=== PATIENT | male | born 1955 | race Caucasian/White ===

== ENCOUNTER 2022-05-01 06:24 | Inpatient (IN) | payer OTHER ==
[2022-04-25 12:03] LABS: BASOPHILS # (AUTO) 0.1 X10'3 (0-0.2); EOSINOPHILS # (AUTO) 0.2 X10'3 (0-0.9); LYMPHOCYTES % (AUTO) 30.7 % (21-51); MEAN CORPUSCULAR HGB CONC 32.8 g/dL (33.0-36.5); MEAN CORPUSCULAR VOLUME 91.4 FL (78-98); MEAN PLATELET VOLUME 9.5 FL (7.4-10.4); MONOCYTES # (AUTO) 0.4 X10'3 (0-0.9); MONOCYTES % (AUTO) 6.8 % (2-12); NEUTROPHILS # (AUTO) 3.8 X10'3 (1.8-7.7); NEUTROPHILS % (AUTO) 58.5 % (42-75); PRE OP HEMATOCRIT 44.9 % (42.0-52.0); PRE OP HEMOGLOBIN 14.7 g/dL (14.0-17.9); PRE OP PLATELET COUNT 291 X10'3 (140-440); RED BLOOD COUNT 4.92 X10'6 (4.70-6.10); RED CELL DISTRIBUTION WIDTH 13.9 % (11.5-14.5)
[2022-04-25 12:27] LABS: ALBUMIN 3.8 G/DL (3.4-5.0); ALBUMIN/GLOBULIN RATIO 0.9 (1.1-1.5); ALKALINE PHOSPHATASE 86 IU/L (46-116); BLOOD UREA NITROGEN 15 MG/DL (7-18); BUN/CREATININE RATIO 15.5 (5.4-32.0); CALCIUM 10.2 MG/DL (8.5-10.1); CHLORIDE 101 MMOL/L (99-107); CREATININE 0.97 MG/DL (0.60-1.10); PRE OP ALT 40 U/L (30-65); PRE OP ANION GAP 6 (8-16); PRE OP AST 22 U/L (10-37); PRE OP BILIRUB, TOTAL 0.4 MG/DL (0.0-1.0); PRE OP GLUCOSE 163 MG/DL (70-104); PRE OP POTASSIUM 3.8 MMOL/L (3.4-5.1); PRE OP SODIUM 138 MMOL/L (135-145); TOTAL CARBON DIOXIDE 31.3 MMOL/L (24-32); TOTAL PROTEIN 7.9 G/DL (6.4-8.2); eGFR 78 ML/MIN
[2022-04-25 13:01] LABS: HEMOGLOBIN A1C 7.8 % (4.5-6.2)
[~2022-05-01] VITALS: Ht 182.9 cm; Wt 127.0 kg
[2022-05-01] VITALS (23 sets, daily range): BP systolic 104–197; BP diastolic 64–118
[~2022-05-01 06:24] MED LIST: ALBU8HFA PO; AMLO5TAB PO; ASPI81TA52 PO; BUDE10.22 INH; EXEN2AUT SQ; GUAI600T45 PO; HYDR12.55 PO; INSU100V12 SQ; LOSA100T57 PO; METF-438 PO; MONT10TA21 PO; PIOG45TA5 PO; ROSU10TA2 PO; ceFAZolin inj. 3,000 MG in normal saline 100ml IV soln 100 ML IV ONE; famotidine 20mg tablet PO ONE; ringers solution, lacted 1,000 ML IV SCH; tranexamic acid inj. 1,000 MG in normal saline IV soln 100ML IV ONE; vancomycin 1,500 MG in NS 300ml IV soln IV ONE
--- NOTE | 2022-05-01 07:58 | NUR ---
VIDEO WATCHED [facility] INTACT, NO OINTMENT USED
[2022-05-01] MEDS ORDERED: epiNEPHrine 1 mg/ml inj ONE (08:10)
[2022-05-01] MEDS ORDERED: ketorolac trometh. 30mg/ml inj. ONE (08:10)
[2022-05-01] MEDS ORDERED: ROPIVAcaine 0.5% (5mg/ml) 30ml vial ONE ×3 (08:10→11:24)
[2022-05-01] MEDS ORDERED: tetracaine 1% (10mg/ml) pres. free inj. ONE (08:15)
[2022-05-01] MEDS ORDERED: MIDAZolam 1mg/ml 10ml vial ONE ×2 (08:16→09:34)
[2022-05-01] MEDS ORDERED: FENTANYL CITRATE/PF 50 MCG/1 ML VIAL ONE ×2 (08:17→11:06)
[2022-05-01] MEDS ORDERED: morphine 10mg/ml inj. ONE (08:19)
[2022-05-01] MEDS ORDERED: vancomycin 1,000mg inj ONE (08:19)
[2022-05-01] MEDS ORDERED: ondansetron/PF 4mg/2ml inj IV PRN ×2 (08:25→12:20)
[2022-05-01] MEDS ORDERED: fentaNYL/PF 50MCG/1 ML 2ML syringe IV PRN ×2 (08:25)
[2022-05-01] MEDS ORDERED: ringers solution, lacted 1,000 ML IV SCH (08:25)
[2022-05-01] MEDS ORDERED: hydrALAZINE 20mg/ml inj. IV PRN (08:25)
[2022-05-01] MEDS ORDERED: morphine 2 MG/ML inj. syringe IV PRN (08:25)
[2022-05-01] MEDS ORDERED: morphine 4 MG/ML inj SYRINge IV PRN (08:25)
[2022-05-01] MEDS ORDERED: labetalol 20mg/4ml (5mg/ml) syringe IV PRN (08:25)
[2022-05-01] MEDS ORDERED: naloxone 0.4 mg/ml inj IV PRN (12:20)
[2022-05-01] MEDS ORDERED: HYDROmorphone 1 mg/ml syringe IV PRN (12:20)
[2022-05-01] MEDS ORDERED: magnesium hydroxide 30ml (MOM) UD suspension PO PRN (12:20)
[2022-05-01] MEDS ORDERED: acetaminophen 325mg tablet PO PRN (12:20)
[2022-05-01] MEDS ORDERED: diphenhydrAMINE 25mg capsule PO PRN ×2 (12:20)
[2022-05-01] MEDS ORDERED: bisacodyl 10mg suppository rectal RC PRN (12:20)
[2022-05-01] MEDS ORDERED: HYDROmorphone inj. 0.5 MG/0.5 ML DISP.SYRIN IV PRN (12:20)
[2022-05-01] MEDS ORDERED: oxyCODONE IR 5mg (immed. release) tablet PO PRN (12:20)
--- NOTE | 2022-05-01 12:21 | NUR ---
RECEIVED PT FROM OPERATING ROOM, REPORT GIVEN BY ANESTHESIOLOGIST DR. PERKINS. PT WITH SPINAL, SENSATION AT L2 AREA PT UNABLE TO WIGGLE TOES AT THIS TIME. SMALL AMOUNT ICE CHIPS GIVEN PT DROWSY, SNORING, EASILY AROUSABLE. IV SITE LEFT HAND FLUSHES WELL, VITAL SIGNS STABLE
--- NOTE | 2022-05-01 13:13 | NUR ---
BLOOD GLUCOSE CHECK AT 1313 WAS 156
[2022-05-01] MEDS: ROPIVAcaine 0.2% (10 MG/5 ML) BOLUS INJECTION ADDCANAL PRN (13:30)
[2022-05-01] MEDS: ROPIVAcaine 0.2%/PF PUMP/bolus 545 ML ADDCANAL SCH (13:30)
--- NOTE | 2022-05-01 13:39 | NUR ---
REPORT CALLED TO XIAO SMITH, PT REMAINS DROWSY BUT EASILY AROUSABLE, IS WAITING IN PATIENTS ROOM
--- NOTE | 2022-05-01 14:11 | NUR ---
pt wide awake and alert. complaining of minimal pain to left leg, he is able to move bilateral legs slightly unable to wiggle toes. Iv remains intact with no signs of infiltration. pt transported to surgical floor in ortho bed in stable condition. waiting in room upon arrival.
[2022-05-01] MEDS: oxyCODONE IR 5mg (immed. release) tablet PO PRN ×2 (14:44→21:33)
[2022-05-01] MEDS: potassium cl 20mEq in 1/2 NS 1,000 ML IV SCH ×2 (15:00→20:20)
[2022-05-01] MEDS: acetaminophen 325mg tablet PO SCH ×2 (15:00→21:32)
[2022-05-01] MEDS ORDERED: NORMAL SALINE IV ONE (15:30)
[2022-05-01] MEDS ORDERED: TRANEXAMIC ACID IV ONE (15:30)
--- NOTE | 2022-05-01 17:00 | NUR ---
patient arrived on floor at 1420. Patient settled in room and educated on how to use call light. Post op vital singes started.
[2022-05-01] MEDS: ceFAZolin/D5W- 1GM premix 50 ML IV SCH (17:06)
--- NOTE | 2022-05-01 18:41 | NUR ---
Problems reprioritized. Patient report given, questions answered & plan of care reviewed with Laura SMITH.
--- NOTE | 2022-05-01 18:45 | NUR ---
Patient in room [facility] 348. I have received report from Kassiyd de la o and had the opportunity to ask questions and assume patient care.
[2022-05-01] MEDS ORDERED: vancomycin/NS 1 GM ADD-VANTAGE 250 ML IV SCH (20:00)
[2022-05-01] MEDS: gabapentin 300mg capsule PO SCH (21:32)
[2022-05-01] MEDS: sennosides 8.6mg tablet PO SCH (21:33)
[2022-05-01] MEDS: losartan 50mg tablet PO SCH (22:07)
[2022-05-02] VITALS: BP 153/82
[2022-05-02] MEDS: potassium cl 20mEq in 1/2 NS 1,000 ML IV SCH (00:23)
[2022-05-02] MEDS: ceFAZolin/D5W- 1GM premix 50 ML IV SCH (00:23)
[2022-05-02] MEDS: acetaminophen 325mg tablet PO SCH ×4 (01:45→19:41)
[2022-05-02] MEDS: oxyCODONE IR 5mg (immed. release) tablet PO PRN ×4 (01:48→19:42)
[2022-05-02 02:15] VITALS: BP 143/84
[2022-05-02] MEDS: ROPIVAcaine 0.2% (10 MG/5 ML) BOLUS INJECTION ADDCANAL PRN (02:41)
--- NOTE | 2022-05-02 02:45 | NUR ---
Patient had accidently rolled on top of the on Q tubing and it had broke. Ropivicaine had leaked out. New on- Q ball collected from pharmacy and attached.
--- NOTE | 2022-05-02 06:30 | NUR ---
Patient in room [facility] 348. I have received report from Laura SIMTH and had the opportunity to ask questions and assume patient care.
--- NOTE | 2022-05-02 06:30 | NUR ---
Problems reprioritized. Patient report given, questions answered & plan of care reviewed with Kassidy SMITH.
[2022-05-02 07:00] VITALS: BP 128/75
[2022-05-02] MEDS: enoxaparin 40mg/0.4ml syringe SQ SCH (07:41)
[2022-05-02] MEDS: gabapentin 300mg capsule PO SCH ×3 (07:42→22:26)
[2022-05-02] MEDS: losartan 50mg tablet PO SCH (07:42)
[2022-05-02 11:00] VITALS: BP 117/59
--- NOTE | 2022-05-02 11:30 | NUR ---
Patient came up to floor after surgery with catheter in, no order's placed, catheter placed during surgery, no history of retention, Keenan catheter removed per infection control protocols. Balloon intact removed with out incident.
[2022-05-02 12:13] LABS: BASOPHILS % (AUTO) 0.3 % (0-1); EOSINOPHILS % (AUTO) 0.1 % (0-6); HEMATOCRIT 39.9 % (42.0-52.0); HEMOGLOBIN 13.4 g/dl (14.0-17.9); LYMPHOCYTES # (AUTO) 1.2 X10'3 (1.1-4.8); LYMPHOCYTES % (AUTO) 10.8 % (21-51); MEAN CORPUSCULAR HEMOGLOBIN 30.2 PG (27.0-31.0); MEAN CORPUSCULAR HGB CONC 33.7 g/dL (33.0-36.5); MEAN CORPUSCULAR VOLUME 89.6 FL (78-98); MEAN PLATELET VOLUME 9.2 FL (7.4-10.4); MONOCYTES # (AUTO) 0.8 X10'3 (0-0.9); MONOCYTES % (AUTO) 7.3 % (2-12); NEUTROPHILS # (AUTO) 8.7 X10'3 (1.8-7.7); NEUTROPHILS % (AUTO) 81.5 % (42-75); PLATELET COUNT 284 X10'3 (140-440); RED BLOOD COUNT 4.45 X10'6 (4.70-6.10); RED CELL DISTRIBUTION WIDTH 13.7 % (11.5-14.5); WHITE BLOOD COUNT 10.6 X10'3 (4.5-11.0)
[2022-05-02 18:00] VITALS: BP 167/101
--- NOTE | 2022-05-02 18:45 | NUR ---
Patient in room [facility] 348. I have received report from Kassidy SMITH and had the opportunity to ask questions and assume patient care.
--- NOTE | 2022-05-02 18:48 | NUR ---
Problems reprioritized. Patient report given, questions answered & plan of care reviewed with Laura SMITH.
[2022-05-02] MEDS: metFORMIN 500mg tablet PO SCH (19:40)
[2022-05-02] MEDS: celeCOXIB 100mg capsule PO SCH (19:41)
[2022-05-02] MEDS ORDERED: celeCOXIB 100mg capsule PO SCH (20:00)
[2022-05-02] MEDS: albuterol 2.5 MG/3 ML nebule NEB SCH (20:24)
[2022-05-02] MEDS: budesonide 0.5mg/2ml UD nebule IH SCH (20:24)
[2022-05-02] MEDS ORDERED: guaiFENesin ER 600mg tablet PO SCH (21:00)
[2022-05-02] MEDS: sennosides 8.6mg tablet PO SCH (21:00)
[2022-05-02] MEDS ORDERED: insulin glargine (Lantus) pen - multi-dose SQ SCH (21:00)
[2022-05-02 22:00] VITALS: BP 132/78
[2022-05-03] MEDS: acetaminophen 325mg tablet PO SCH ×2 (02:00→09:04)
[2022-05-03] MEDS: albuterol 2.5 MG/3 ML nebule NEB SCH ×2 (03:00→08:53)
[2022-05-03] MEDS: oxyCODONE IR 5mg (immed. release) tablet PO PRN ×2 (05:01→09:05)
[2022-05-03 06:00] VITALS: BP 151/96
--- NOTE | 2022-05-03 06:30 | NUR ---
Reported off to Lacy SMITH. DR Locke just in to assess patient, and indicated pt. will be going home today.
[2022-05-03] MEDS ORDERED: amLODIPine 5mg tablet PO SCH (08:00)
[2022-05-03] MEDS ORDERED: pioglitazone 45mg tablet PO SCH (08:00)
[2022-05-03] MEDS ORDERED: losartan 50mg tablet PO SCH (08:00)
[2022-05-03] MEDS ORDERED: atorvastatin 20mg tablet PO SCH (08:00)
[2022-05-03] MEDS ORDERED: HYDROchlorothiazide 12.5mg capsule PO SCH (08:00)
[2022-05-03] MEDS: ROPIVAcaine 0.2%/PF PUMP/bolus 545 ML ADDCANAL SCH (08:52)
[2022-05-03] MEDS: budesonide 0.5mg/2ml UD nebule IH SCH (08:53)
[2022-05-03] MEDS: enoxaparin 40mg/0.4ml syringe SQ SCH (09:01)
[2022-05-03] MEDS: metFORMIN 500mg tablet PO SCH (09:02)
[2022-05-03] MEDS: celeCOXIB 100mg capsule PO SCH (09:02)
[2022-05-03] MEDS: gabapentin 300mg capsule PO SCH (09:02)
[2022-05-03] MEDS: losartan 50mg tablet PO SCH (09:03)
[2022-05-03 09:06] VITALS: BP_SYST 151
[2022-05-03] MEDS ORDERED: pioglitazone 15mg tablet PO SCH (09:42)
[2022-05-03] MEDS ORDERED: acetaminophen 325mg tablet PO PRN (12:20)
== END 2022-05-03 11:00 | disposition home or self-care (01) | DRG 470 ==
LOC: PAS IN 06:24 → SUR 3N 14:39
PROVIDERS: ADMIT Orthopaedic Surgery; ATTEND Orthopaedic Surgery
PROC: 3E0T3BZ Introduction of Anesthetic Agent into Peripheral Nerves and Plexi, Percutaneous Approach (ICD-10-PCS; 2022-05-01)
PROC: 3E0T33Z Introduction of Anti-inflammatory into Peripheral Nerves and Plexi, Percutaneous Approach (ICD-10-PCS; 2022-05-01)
PROC: 0SRD0J9 Replacement of Left Knee Joint with Synthetic Substitute, Cemented, Open Approach (ICD-10-PCS; principal; 2022-05-01 08:46)
DX: M17.12 Unilateral primary osteoarthritis, left knee (principal)
CPT/HCPCS: Z7506; Z7508; 36415; 73560; 80053; 82948; 83036; 85025; 87081; 94640; 94760; 97110; 97116; 97161; 97530; A4215; A4615; A6253; A6258; A6446; A6449; A7000; C1713; C1758; C1776; C9250; G0378; J0171; J0690; J1650; J1815; J1885; J2250; J2274; J2795; J3010; J3370; J3480; J3490; J7040; J7120